=== PATIENT | female | born 1955 | race Caucasian/White ===

== ENCOUNTER → 2022-01-07 | Outpatient (CLI) | payer BC, SELFPAY ==
[2022-01-07 17:17] LABS: Absolute Lymphocyte Count 2.39 X10^3/uL (0.83-4.51); Absolute Neutrophil Count 4.2 X10^3/uL (2.0-7.7); Basophil# 0.07 X10^3/uL; Basophil% 0.9 % (0-1); Eosinophil# 0.31 X10^3/uL; Eosinophils% 4.1 % (0-5); Hematocrit 40.6 % (37-47); Hemoglobin 13.2 g/dL (12.0-15.0); Lymphocyte # 2.39 X10^3/ul (0.83-4.51); Lymphocyte % 31.4 % (19-41); Mean Corp Hgb Conc 32.5 g/dL (32-36); Mean Corpuscular Hgb 27.8 pg (27.0-32.0); Mean Corpuscular Volume 85.7 fL (81-99); Mean Platelet Vol. 9.8 fl (6.2-12.0); Monocyte# 0.66 X10^3/uL; Monocyte% 8.7 % (0-10); NRBC Flagged by Analyzer 0 % (0-5); Neutrophil # 4.17 X10^3/uL (2.7-7.7); Neutrophil % 54.6 % (47-70); Platelet Count 312 K/mm3 (150-450); RBC Distribution Width CV 13.9 % (11.6-14.6); RBC Distribution Width SD 43.7 fl (35.1-43.9); Red Blood Count 4.74 M/mm3 (4.2-5.4); White Blood Count 7.6 K/mm3 (4.4-11.0)
[2022-01-07 17:38] LABS: Erythrocyte Sedimentation Rate 19 mm/hr (0-30)
[2022-01-07 17:43] LABS: AST(SGOT) 19 U/L (15-37); Alanine Aminotransfer ALT/SGPT 24 U/L (13-56); Albumin, Serum 3.8 g/dL (3.2-5.0); Alkaline Phosphatase 88 U/L (45-117); Anion Gap 4 (5-15); BUN 20 mg/dL (7-18); CRP 4.38 mg/L (0.0-3.0); Calcium,Total 9.4 mg/dL (8.5-10.1); Chloride 107 mmol/L (98-107); Creatinine, Serum 0.91 mg/dL (0.55-1.02); EST Glomerular Filtration Rate 66 mL/min (>60); Est Glom Filt Rate - Afr Amer 80 mL/min (>60); Globulin 3.7 g/dL (2.2-4.2); Glucose 89 mg/dL (74-106); Potassium 4.1 mmol/L (3.5-5.1); Protein, Total 7.5 g/dL (6.4-8.2); Sodium Level 139 mmol/L (136-145)
== END | disposition home or self-care (01) ==
LOC: LAB 16:54
PROVIDERS: PCP Internal Medicine; Referring Provider Internal Medicine; Visit Provider Internal Medicine
DX: M05.79 Rheumatoid arthritis with rheumatoid factor of multiple sites without organ or systems involvement (principal)
CPT/HCPCS: 36415; 80053; 85025; 85652; 86140

== ENCOUNTER 2022-01-29 09:55 | Day surgery (SDC) | payer BC, SELFPAY ==
[2022-01-29] VITALS (8 sets, daily range): BP systolic 94–130; BP diastolic 63–82; PULSE 63–84; RESP 16–18; TEMP 35.9–36.8; O2SAT 93–98; BMI 27.3
--- NOTE | 2022-01-29 08:02 | OP.PCM_ITS ---
Problems Associated Problem List Diagnoses (1) Stress incontinence: Report of Operation Date of Procedure: 01/29/22 Pre-Operative Diagnosis: Stress urinary incontinence Post-Operative Diagnosis: Same Surgery/Procedure Performed:: Insertion mid urethral sling, cystoscopy Surgeon: Ana Corado Type of Anesthesia: General Specimen's removed: None Description of Procedure: The patient is a 66-year-old female who presents for definitive surgical intervention for. Informed consent has been obtained. Patient was taken to the operating room and placed in supine position on the operating room table. She was appropriately padded and secured. Anesthesia monitored the head, neck, airway, IV access and vital signs throughout the case. Once anesthesia was appropriately administered, she was placed into dorsal lithotomy position and she was prepped and draped in usual sterile fashion. A 16 [place] Hoffman catheter was inserted in her bladder was drained and left to straight drain. The mid urethra was isolated and infiltrated submucosally with 1% lidocaine with epinephrine for hydrostatic dissection and hemostatic control. A midline vertical 2 cm incision was then made over the mid urethra. Sharp and blunt dissection was performed on either side of the urethra in order to avoid entrance into the urethra or the vaginal mucosa. The [place] mid urethral sling was then inserted into the transobturator complexes bilaterally using the provided trochars. The sling was placed against the urethra without tension in a flat position. The tensioning suture was then cut and the incision was closed using running interlocking 2-0 Vicryl. The Hoffman catheter was removed and the cystoscope was inserted through the urethra under direct visualization into the urinary bladder. There was no evidence of injury to the urinary bladder, no mucosal changes including mass. There was no injury to the urethra identified. The cystoscope was removed. At this time the patient was awakened and taken to the recovery room in good condition. There were no complications during this procedure. Complications None Admit VTE Documentation VTE Present on Admission: Yes VTE Mechan Device Prophylaxis: SCD's VTE Pharm Prophylaxis ordered?: No Reason prophylaxis not ordered:: Treatment Not Indicated
--- NOTE | 2022-01-29 08:06 | DCINST_ITS ---
Discharge Instructions Diet Discharge Diet: No restrictions Activity Discharge Activity: May Shower May resume sexual activity in: 4 weeks Lifting Restrictions: No lifting over 5 pounds Additional Activity Instructions:: No exercise, no strenuous activity, no sexual activity Dressing / Incision Call your doctor if your incision/area has: Continuous Slow Oozing, Sudden Increased Bleeding, Increased Pain/ Swelling, Increased Redness, Foul Smelling Discharge and Swelling at the incision site Call your doctor if you observe: Fever of 101 or Higher, Inability to urinate and Inability to have a bowel movement Follow Up Care Please Follow Up With: Ana Corado MD When: call office for appt Test Results: Test results from this visit will be discussed in further detail at your follow-up appointment, if applicable. Discharge Plan Admission Attending Provider: Ana Corado Primary Care Provider: Lluvia Merchant Discharge Orders/Prescriptions Prescriptions: New oxycodone-acetaminophen [Percocet] 5-325 mg tablet 1 tab PO Q8H PRN (Reason: pain) 5 Days Qty: 15 RF: 0 cephalexin [cephalexin] 500 MG capsule 500 mg PO Q12 3 Days Qty: 6 RF: 0 Continued meloxicam 15 mg tablet 15 mg PO DAILY RF: 0 pantoprazole 40 mg tablet,delayed release (DR/EC) 40 mg PO BID RF: 0 Other Ambulatory Orders: CBC-Complete Blood Cnt No Diff (Routine) Timeframe: 20220128 Facility: [facility] - Location: Laboratory Ordered By: Dr. Liang Maradiaga 12 Lead EKG (Routine) Timeframe: 20220128 Location: None Selected Ordered By: Dr. Liang Maradiaga Referrals / Follow Up: Lluvia Merchant MD [Primary Care Provider] - Disposition Disposition (needs filled in before D/C Order can be placed): Home, Self Care
[2022-01-29] MEDS: Lactated Ringers 1,000 ML 15 ML IV (10:33)
[2022-01-29] MEDS: Cefazolin 2 GM in 0.9% Normal Saline 100 ML IV (11:35)
[2022-01-29] MEDS: Lidocaine 1% /Epi 1:100 (20ml) 20 ML Vial (11:43)
== END 2022-01-29 15:06 | disposition home or self-care (01) ==
LOC: SDC 09:57 → AC 09:58
PROVIDERS: PCP Internal Medicine; Referring Provider Urology; Visit Provider Urology
PROC: 0TJB8ZZ Inspection of Bladder, Via Natural or Artificial Opening Endoscopic (ICD-10-PCS; CPT 57288; principal; 2022-01-29 11:25)
DX: N39.3 Stress incontinence (female) (male) (principal); M06.9 Rheumatoid arthritis, unspecified; N95.2 Postmenopausal atrophic vaginitis; Z87.442 Personal history of urinary calculi; K21.9 Gastro-esophageal reflux disease without esophagitis
CPT/HCPCS: 57288; 00860; 52000; J7120; J2405

== ENCOUNTER → 2022-12-09 | Outpatient (CLI) | payer MEDICARE, BC, SELFPAY ==
--- NOTE | 2022-12-09 10:45 | BI_ITS ---
MAMMOGRAPHY - BILATERAL SCREENING REASON FOR EXAM: Female, 67 years old. Routine annual screening examination. PERTINENT HISTORY: Non-contributory. TECHNIQUE: Digital bilateral breast rufina (3D mammographic acquisition) in the CC and MLO projections. 2-D mediolateral oblique (MLO) and craniocaudad (CC) views of both breasts were obtained. CAD: Full Field Digital Mammography with Computer Added Detection was performed. COMPARISON: Comparison is made with prior outside examination dated August 30, 2014. FINDINGS: Breast Composition: There are scattered areas of fibroglandular density. There are no dominant masses or suspicious calcifications. Stable 5.3 mm calcified nodule in the upper slightly lateral aspect of the right breast. No other significant abnormalities are identified. There has been no significant change since the prior study. BI/SCRN MAMM (CAD)W/RUFINA BILAT IMPRESSION: Stable bilateral screening mammogram. Yearly follow-up mammogram recommended. (A) ASSESSMENT CATEGORY: BIRADS Category 2: Benign. A letter regarding these results will be sent to the patient by the facility within 30 days. Approximately 10% of breast cancers are not detected by mammography. A normal mammogram should not delay biopsy of a clinically suspicious abnormality. [id number] Electronically Signed: Bo Orta MD at 8:58 EDT ,
[2022-12-17 20:33] LABS: HPV Reflexed? NOT INDICATED
== END | disposition home or self-care (01) ==
PROVIDERS: Nurse Practitioner Women's Health; PCP Internal Medicine; Referring Provider Obstetrics & Gynecology Gynecology; Visit Provider Obstetrics & Gynecology Gynecology
DX: Z12.31 Encounter for screening mammogram for malignant neoplasm of breast (principal); L24.9 Irritant contact dermatitis, unspecified cause; Z12.4 Encounter for screening for malignant neoplasm of cervix
CPT/HCPCS: 77063; 77067; 88175; G0145

== ENCOUNTER → 2022-12-18 | Outpatient (CLI) | payer MEDICARE, BC, SELFPAY ==
--- NOTE | 2022-12-18 11:20 | US_ITS ---
INDICATION: postmenopausal bleeding -- discharge for 4 days EXAMINATION: Ultrasound US Pelvis Non OB Limited With Transvaginal Imaging TECHNIQUE: Transabdominal and transvaginal (for optimal evaluation of the adnexa) pelvic ultrasound was performed. Grayscale, spectral waveform, and color flow Doppler evaluation of the adnexa. COMPARISON: None. FINDINGS: UTERUS: Anteverted. The uterus measures 7.2 x 4.4 x 2.7 cm and is slightly heterogeneous. There is no focal uterine mass. The endometrial stripe measures 4 mm in AP diameter which is within normal limits for postmenopausal patient. Few nabothian cysts. Trace endocervical free fluid. RIGHT OVARY: Measures 2.2 x 1.9 x 1.4 cm. Non-enlarged, normal echogenicity. There is normal arterial inflow and venous outflow present in the right ovary. LEFT OVARY: Not visualized. FREE FLUID: None. US/Pelvic (Non ) IMPRESSION: Trace endocervical free fluid. Slight heterogeneity of the uterus with no evidence of fibroids or adenomyosis. Normal endometrial thickness. Non-visualization of the left ovary, possibly atrophied. Normal right ovary. Electronically Signed: Claudio Cerrato MD at 22:33 EDT ,
--- NOTE | 2022-12-18 11:20 | US_ITS ---
INDICATION: postmenopausal bleeding -- discharge for 4 days EXAMINATION: Ultrasound US Pelvis Non OB Limited With Transvaginal Imaging TECHNIQUE: Transabdominal and transvaginal (for optimal evaluation of the adnexa) pelvic ultrasound was performed. Grayscale, spectral waveform, and color flow Doppler evaluation of the adnexa. COMPARISON: None. FINDINGS: UTERUS: Anteverted. The uterus measures 7.2 x 4.4 x 2.7 cm and is slightly heterogeneous. There is no focal uterine mass. The endometrial stripe measures 4 mm in AP diameter which is within normal limits for postmenopausal patient. Few nabothian cysts. Trace endocervical free fluid. RIGHT OVARY: Measures 2.2 x 1.9 x 1.4 cm. Non-enlarged, normal echogenicity. There is normal arterial inflow and venous outflow present in the right ovary. LEFT OVARY: Not visualized. FREE FLUID: None. US/Transvaginal Non- IMPRESSION: Trace endocervical free fluid. Slight heterogeneity of the uterus with no evidence of fibroids or adenomyosis. Normal endometrial thickness. Non-visualization of the left ovary, possibly atrophied. Normal right ovary. Electronically Signed: Claudio Cerrato MD at 22:33 EDT ,
== END | disposition home or self-care (01) ==
LOC: US 11:20
PROVIDERS: PCP Internal Medicine; Referring Provider Nurse Practitioner Women's Health; Visit Provider Nurse Practitioner Women's Health
DX: N95.0 Postmenopausal bleeding (principal)
CPT/HCPCS: 76830; 76856

== ENCOUNTER 2023-01-04 15:20 | Emergency (ER) | payer MEDICARE, BC, SELFPAY ==
[2023-01-04 15:21] VITALS: BP 166/114; PULSE 133; RESP 18; TEMP 37.7; O2SAT 92; BMI 26.9
--- NOTE | 2023-01-04 15:36 | EKG12_ITS ---
Test Reason : Palp Blood Pressure : / mmHG Vent. Rate : 130 BPM Atrial Rate : 130 BPM P-R Int : 144 ms QRS Dur : 092 ms QT Int : 304 ms P-R-T Axes : 068 003 061 degrees QTc Int : 447 ms Sinus tachycardia with frequent and consecutive Premature ventricular complexes Abnormal ECG Confirmed by KEYLA ENGLAND, TERRIE ([id number]), editor continuity and script MARILU SAMUEL ([id number]) on 01/05/2023 9:49:11 AM Referred By: TIMOTEO Confirmed By:TERRIE RAMIRES MD
[2023-01-04 15:41] VITALS: BP 153/89; PULSE 120; RESP 17; O2SAT 92
--- NOTE | 2023-01-04 15:41 | EDS_ITS ---
HPI History of Present Illness Chief Complaint: Palpitations Informant: patient Narrative Narrative: Patient presents with multiple concerns. Patient states that she got her rituximab infusion about 2 weeks ago. Ever since then she just has not felt right. She cannot define this. There were no specific symptoms. She just did not feel well. She has had this infusion many times over about 6 years so this was not a new medicine. She has never had these symptoms before. Patient did start with some coughing and URI congestion type symptoms on Wednesday. But this was not going on for the prior 2 weeks. She states she might have just the smallest amount of chest pain at times but she might also be imagining it. Last night she did hear a sound in her chest like a rattling. She has been coughing but not bringing anything up. No fevers or chills. No nausea vomiting. She also feels like her heart rate has been racing for the last few days. She has no history of heart disease or dysrhythmia. Her only medical problems are rheumatoid arthritis and GERD. Her mother did have heart attack in her mid 50s but she also was a heavy smoker. This patient has never smoked. No known risk factor for DVT or PE. On review of systems, I also find out that the patient has had some frequent urination going back a couple weeks. But not dysuria. The main reason the patient came in today is the coughing and congestion that started Wednesday. She was seen in urgent care Wednesday. Started on cough medicine and prednisone and is not better. No antibiotics. She also has a grandchild with similar symptoms. [facility] Medical History Barretts esophagus Bronchitis Cancer Gastric reflux Restless legs Rheumatoid arthritis Sinusitis Stress incontinence URI (upper respiratory infection) Wears glasses Home Medications meloxicam 15 mg tablet 15 mg PO DAILY 01/23/22 [History Last Taken Unknown] pantoprazole 40 mg tablet,delayed release 40 mg PO BID 01/23/22 [History Last Taken Unknown] rituximab 10 mg/mL concentrate,intravenous (Rituxan) mg .Route 12/09/22 [History Last Taken Unknown] cgtlgvvxdqilcjw-nlcnlwqprhiaojv-MO 1 mg-30 mg-20 mg/5 mL oral liquid 10 ml PO Q6H PRN sinus symptoms #473 mL 01/02/23 [Rx Last Taken Unknown] methylprednisolone 4 mg tablets in a dose pack (Medrol (Fermin)) See Rx Instructions PO PER PKG DIR #21 tabs 01/02/23 [Rx Last Taken Unknown] cephalexin 250 mg capsule 250 mg PO Q6 #40 CAPSULES 01/04/23 [Rx Last Taken Unknown] Allergy/AdvReac Type Severity Reaction Status Date / Time No Known Allergies Allergy Verified 01/04/23 15:21 Surgical History History of bunionectomy Hx of colonoscopy Hx of esophagogastroduodenoscopy Status post creation of urethral sling by suprapubic approach Social History household members: spouse housing: house number of children: 3 current occupational status: retired Smoking Status: Never smoker alcohol intake: current alcohol intake frequency: holidays/special occasions only substance use type: does not use seatbelt use: sometimes do you feel safe at home: Yes additional social history: - Jose- Retired ROS ROS ED ROS Narrative A complete review of systems was performed and is negative except as documented in the history of present illness. Some specific details below. Constitutional: No recent fevers or chills. He has had some mild sense of malaise. She just states that she does not feel right but it is hard to explain the detailed symptoms. EYE: No discharge, visual complaints, or pain. ENT: No difficulty swallowing. No swelling. No pain. No current reflux symptoms. CV: See history of present illness. Respiratory: See history of present illness. GI: No abdominal pain. No nausea vomiting diarrhea. No blood in stool. : She has had frequency but not dysuria or hematuria. Musculoskeletal: No recent trauma. No pains. No swelling. Skin: No rash. Nondiaphoretic. Neuro: No goal weakness or numbness. Endocrine: No polyuria or polydipsia. EXAM Physical Exam Narrative Exam Narrative: CONSTITUTIONAL: Patient is nontoxic in appearance. The patient looks comfortable. Work of breathing looks normal. He carries on normal conversation. HEENT: No notable trauma. Mucous membranes moist. No sinus tenderness. No indication of pain with swallowing. EYES: No conjunctival injection. No proptosis. NECK:No JVD. No stridor. CARDIOVASCULAR: Mildly tachycardic rate. Slightly irregular rhythm. No notable murmur. No JVD. Monitor shows frequent PVCs and occasional bigeminy or trige ebony. There is also an occasional couplet. RESPIRATORY: No respiratory distress. Breathing is unlabored. No wheezes. No rhonchi. No rales. No pain with a deep breath. No chest wall tenderness. GASTROINTESTINAL: Not distended. Bowel sounds are normal. No tenderness. No guarding. No rebound. No palpable mass. No bruit is heard. GENITOURINARY: No tenderness over the bladder. No CVA tenderness. MUSCULOSKELETAL: Atraumatic. No peripheral edema. No cord. No tenderness along the deep venous system. No asymmetry. No distended veins. Peripheral pulses are equal x4. NEUROLOGICAL: Patient is alert and appropriate. No focal deficit noted. SKIN: No noted rashes. No diaphoresis. PSYCHIATRIC: Patient is calm. Mood is appropriate. Const Vital Signs: 01/04/23 15:21 01/04/23 15:41 01/04/23 15:41 Temperature 99.9 F H Temperature Source Temporal Pulse Rate 133 H 120 H Respiratory Rate 18 17 Respiratory Effort Normal Non-Labored Respiratory Pattern Normal Blood Pressure 166/114 H 153/89 H Blood Pressure Mean 131 110 Pulse Ox 92 92 Oxygen Delivery Method Room Air Room Air MDM MDM MDM Narrative Medical decision making narrative: Patient CBC did show an elevated white count of 15.9 but was otherwise normal. Her D-dimer was negative. Troponin was negative at 5 Electrolytes showed no marked abnormalities. Beta natruretic peptide was negative. Urine was cloudy with a large amount of leukocyte esterase and increased white cells. This along with her not feeling well, dysuria, elevated white count does lead me to believe that this is a true UTI. I think she has probably had a UTI for a week or 2 which is made her feel bad. She then got the upper respiratory symptoms from her grandchild. We did give her fluids. Her heart rate came from 130s down to about 100?110. I am not seeing anything except a rare PVC now. I think some of this increased heart rate and PVCs are likely contributed by methylprednisolone but even more likely by the brompheniramine pseudoephedrine that she has been taking. I think these may be causing more damage than benefit and at this point we discussed just stopping them. I will get her started on antibiotics for UTI. She has intolerance to Cipro. We will try Keflex. Lab Data Attestation: I reviewed the patient's lab results. Labs: Laboratory Results - last 24 hr 01/04/23 01/04/23 01/04/23 15:35 15:35 15:35 WBC 15.9 H RBC 5.38 Hgb 15.0 Hct 45.9 MCV 85.3 MCH 27.9 MCHC 32.7 RDW Std Deviation 43.4 RDW Coeff of Braxton 14.1 Plt Count 332 MPV 9.6 Immature Gran % (Auto) 0.500 Neut % (Auto) 81.5 H Lymph % (Auto) 9.5 L [place] % (Auto) 8.0 Eos % (Auto) 0.1 Baso % (Auto) 0.4 Absolute Neuts (auto) 12.9 H Absolute Lymphs (auto) 1.51 Nucleated RBC % 0 D-Dimer Quant (PE/DVT) 0.45 Sodium 137 Potassium 3.7 Chloride 101 Carbon Dioxide 25.0 Anion Gap 11 BUN 15 Creatinine 0.87 Estim Creat Clear Calc 65.03 Est GFR (MDRD) Af Amer 84 Est GFR (MDRD) Non-Af 69 BUN/Creatinine Ratio 17.3 Glucose 102 Calcium 10.1 Magnesium Troponin I High Sens 5 B-Natriuretic Peptide Urine Color Urine Clarity Urine pH Ur Specific [place] Urine Protein Urine Glucose (UA) Urine Ketones Urine Occult Blood Urine Nitrite Urine Bilirubin Urine Urobilinogen Ur Leukocyte Esterase Urine RBC Urine WBC Ur Squamous Epith Cells Urine Bacteria Urine Mucus 01/04/23 01/04/23 01/04/23 15:35 15:35 16:57 WBC RBC Hgb Hct MCV MCH MCHC RDW Std Deviation RDW Coeff of Braxton Plt Count MPV Immature Gran % (Auto) Neut % (Auto) Lymph % (Auto) [place] % (Auto) Eos % (Auto) Baso % (Auto) Absolute Neuts (auto) Absolute Lymphs (auto) Nucleated RBC % D-Dimer Quant (PE/DVT) Sodium Potassium Chloride Carbon Dioxide Anion Gap BUN Creatinine Estim Creat Clear Calc Est GFR (MDRD) Af Amer Est GFR (MDRD) Non-Af BUN/Creatinine Ratio Glucose Calcium Magnesium 1.9 Troponin I High Sens B-Natriuretic Peptide 33.1 Urine Color Yellow Urine Clarity Sl. Cloudy Urine pH 7.0 Ur Specific [place] 1.010 Urine Protein Negative Urine Glucose (UA) Normal Urine Ketones 5 H Urine Occult Blood 10 H Urine Nitrite Negative Urine Bilirubin Negative Urine Urobilinogen Normal Ur Leukocyte Esterase 500 H Urine RBC 0-5 SEEN Urine WBC 10-25 SEEN Ur Squamous Epith Cells 0-5 SEEN Urine Bacteria RARE Urine Mucus 0 SEEN Radiography Diagnostic Testing: Clinical Impression(s) from Imaging Studies Chest X-Ray 01/04/23 16:05 IMPRESSION: No definite acute or significant abnormality seen. Electronically Signed: Monico Armstrong MD at 16:51 EDT , EKG Initial EKG: Comments: My independent interpretation the patient's EKG done for cough and possible chest pain and tachycardia shows primarily sinus rhythm with overall tachycardic rate at 130. Frequent PVCs and occasional couplet. No acute ST elevation or depression. WA interval QRS duration and QTc are all normal. Discharge Plan Triage Chief Complaint: Palpitations Other Complaint: Hypertension ED Provider: Jace Song Dx/Rx/DC Orders Clinical Impression: Acute UTI, Viral URI with cough, Tachycardia, Medication reaction Instructions: ED Cystitis Female Adult Prescriptions: New cephalexin [cephalexin] 250 mg capsule 250 mg PO Q6 Qty: 40 0RF No Action Rituxan 10 mg/mL concentrate .Route Rx Instructions: Q 6months gfftxktrxybioeb-pszkwlfte-YR 1-30-20 mg/5 mL liquid 10 ml PO Q6H PRN (Reason: sinus symptoms) Qty: 473 0RF Rx Instructions: 40 ml/ day max methylprednisolone [Medrol (Fermin)] 4 mg tablets,dose pack See Rx Instructions PO PER PKG DIR Qty: 21 0RF Rx Instructions: PO PER PKG DIR meloxicam 15 mg tablet 15 mg PO DAILY Label Comments: TAKE 1 TABLET BY MOUTH EVERY DAY NEEDED pantoprazole 40 mg tablet,delayed release (DR/EC) 40 mg PO BID Primary Care Provider: Lluvia Merchant Referrals: Lluvia Merchant MD [Primary Care Provider] - 3-5 Days if not improving Activity Restrictions/Additional Instructions: May follow-up with your primary physician if not better in 3 to 4 days. Disposition Disposition: Home, Self Care
[2023-01-04 15:48] LABS: Absolute Lymphocyte Count 1.51 X10^3/uL (0.83-4.51); Absolute Neutrophil Count 12.9 X10^3/uL (2.0-7.7); Basophil# 0.06 X10^3/uL; Basophil% 0.4 % (0-1); Eosinophil# 0.01 X10^3/uL; Eosinophils% 0.1 % (0-5); Hematocrit 45.9 % (37-47); Lymphocyte # 1.51 X10^3/ul (0.83-4.51); Lymphocyte % 9.5 % (19-41); Mean Corp Hgb Conc 32.7 g/dL (32-36); Mean Corpuscular Hgb 27.9 pg (27.0-32.0); Mean Corpuscular Volume 85.3 fL (81-99); Mean Platelet Vol. 9.6 fl (6.2-12.0); Monocyte# 1.27 X10^3/uL; NRBC Flagged by Analyzer 0 % (0-5); Neutrophil # 12.92 X10^3/uL (2.7-7.7); Neutrophil % 81.5 % (47-70); Platelet Count 332 K/mm3 (150-450); RBC Distribution Width CV 14.1 % (11.6-14.6); RBC Distribution Width SD 43.4 fl (35.1-43.9); Red Blood Count 5.38 M/mm3 (4.2-5.4); White Blood Count 15.9 K/mm3 (4.4-11.0)
--- NOTE | 2023-01-04 15:50 | ED.RN ---
NO OLD EKGS LISTED.
[2023-01-04 15:59] LABS: D-Dimer Quantitative (DVT/PE) 0.45 FEU/ug/m (0.27-0.49)
--- NOTE | 2023-01-04 16:05 | RAD_ITS ---
STUDY: X-RAY CHEST REASON FOR EXAM: Female, 67 years old. Cough TECHNIQUE: Frontal and lateral views of the chest. COMPARISON: None. FINDINGS: The lungs are clear and expanded. Probable mild scarring in both lung bases. There is no demonstrated pleural abnormality. Normal size heart. Normal mediastinum and zoya. Normal visualized pulmonary arteries. Normal visualized aortic arch and descending thoracic aorta. Moderate hiatal hernia. There are diffuse degenerative changes of the visualized thoracic spine. Normal visualized ribs, clavicles, and shoulders. There is no demonstrated abnormality of the visualized soft tissue structures of the upper abdomen. RAD/Chest PA and Lateral IMPRESSION: No definite acute or significant abnormality seen. Electronically Signed: Monico Armstrong MD at 16:51 EDT ,
[2023-01-04 16:08] LABS: Anion Gap 11 (5-15); BUN 15 mg/dL (7-18); BUN/Creat Ratio 17.3 RATIO (10-20); Calcium,Total 10.1 mg/dL (8.5-10.1); Chloride 101 mmol/L (98-107); Creatinine, Serum 0.87 mg/dL (0.55-1.02); EST Glomerular Filtration Rate 69 mL/min (>60); Est Glom Filt Rate - Afr Amer 84 mL/min (>60); Estimated Creatinine Clearance 65.03 ml/min; Glucose 102 mg/dL (74-106); Potassium 3.7 mmol/L (3.5-5.1); Sodium Level 137 mmol/L (136-145); Troponin-I HS 5 pg/mL (3.0-54.0)
[2023-01-04 16:09] LABS: Magnesium 1.9 mg/dL (1.6-2.6)
[2023-01-04] MEDS: 0.9% Normal Saline 1,000 ML 999 ML IV (16:13)
[2023-01-04 17:02] LABS: Mucous, Urine 0 SEEN /hpf (<or=2+)
[2023-01-04 17:09] LABS: Color, Urine Yellow (Yellow); Glucose, Dipstick Normal (Normal); Ketone-Dipstick 5 mg/dl (Negative); Leukocyte Esterase-Dipstick 500 /ul (Negative); Nitrite-Dipstick Negative (Negative); Occult Blood-Urine 10 /ul (Negative); Protein-Dipstick Negative (Negative); Urine Bilirubin Dipstick Negative (Negative); Urine Clarity Sl. Cloudy (Clear); Urine Urobilinogen Normal (Normal)
[2023-01-04 17:24] LABS: BNP,B-Type NATRIURETIC PEPTIDE 33.1 pg/mL (0-100)
[2023-01-04 17:27] LABS: Bacteria RARE /hpf (None Seen); Red Blood Cells-Urine 0-5 SEEN /hpf (0-5); Squamous Epithelial Cells - UA 0-5 SEEN /hpf (5-10); White Blood Cells 10-25 SEEN /hpf (0-5)
[2023-01-04 17:48] VITALS: BP 147/92; PULSE 118; RESP 18; O2SAT 91
== END 2023-01-04 18:02 | disposition home or self-care (01) ==
PROVIDERS: Emergency Provider Emergency Medicine; PCP Internal Medicine; Visit Provider Emergency Medicine
DX: N39.0 Urinary tract infection, site not specified (principal); M06.9 Rheumatoid arthritis, unspecified; I10 Essential (primary) hypertension; R00.0 Tachycardia, unspecified; T50.905A Adverse effect of unspecified drugs, medicaments and biological substances, initial encounter; R00.2 Palpitations; J06.9 Acute upper respiratory infection, unspecified; R05.9 Cough, unspecified; K21.9 Gastro-esophageal reflux disease without esophagitis
CPT/HCPCS: 71046; 80048; 81001; 83735; 83880; 84484; 85025; 85379; 87428; 93005; 99284; J7030; A4216

== ENCOUNTER → 2023-01-19 | Outpatient (CLI) | payer MEDICARE, BC, SELFPAY | END | disposition home or self-care (01) | LOC: PSN 11:22 | PROVIDERS: PCP Internal Medicine; Referring Provider Internal Medicine; Visit Provider Internal Medicine | DX: R00.2 Palpitations (principal) | CPT/HCPCS: 93225; 93226 ==

== ENCOUNTER → 2023-03-31 | Outpatient (CLI) | payer MEDICARE, BC, SELFPAY ==
--- NOTE | 2023-03-31 07:53 | US_ITS ---
STUDY: ULTRASOUND OF THE FEMALE PELVIS - COMPLETE REASON FOR EXAM: Female, 68 years old. PMB LMP: Patient is postmenopausal. TECHNIQUE: Transabdominal and Transvaginal TECHNICAL QUALITY: Adequate. COMPARISON: Comparison is made with prior study dated December 10, 2022. FINDINGS: The uterus is anteverted and is in a midline position. The uterus measures 5.8 cm x 4.4 cm x 2.7 cm. There is a Nabothian cyst of the cervix. The endometrium measures 1.3 mm in thickness, and is hyperechoic. There is no demonstrated endometrial mass. There is no demonstrated myometrial mass. Scattered calcifications are seen within the myometrium. I.U.D. - The patient does not have an I.U.D. The right ovary is visualized. The right ovary measures 1.2 cm x 1.2 cm x 0.8 cm. There is no right ovarian cyst or ovarian mass. There is no visualized right adnexal mass or complex lesion. There is normal arterial and normal venous vascularity. The left ovary is visualized. The left ovary measures 1.6 cm x 1.3 cm x 0.9 cm. There is no left ovarian cyst or ovarian mass. There is no visualized left adnexal mass or complex lesion. There is normal arterial and normal venous vascularity. There is no fluid in the cul-de-sac. The pre void volume of the bladder was 278 ml. US/Pelvic w/ Transvaginal IMPRESSION: Mild heterogeneous appearance of the myometrium with scattered calcifications. Electronically Signed: Bo Orta MD at 15:00 EDT ,
== END | disposition home or self-care (01) ==
LOC: OPUS 07:52
PROVIDERS: PCP Internal Medicine; Referring Provider Nurse Practitioner Women's Health; Visit Provider Nurse Practitioner Women's Health
DX: N95.0 Postmenopausal bleeding (principal); Z78.0 Asymptomatic menopausal state
CPT/HCPCS: 76830; 76856

== ENCOUNTER → 2023-07-10 | Outpatient (CLI) | payer MEDICARE, BC, SELFPAY | END | disposition home or self-care (01) | LOC: LABSPEC 07:34 | PROVIDERS: PCP Internal Medicine; Visit Provider Internal Medicine | DX: J98.4 Other disorders of lung (principal) | CPT/HCPCS: 87070; 87077; 87101; 87205 ==

== ENCOUNTER → 2023-11-17 | Outpatient (CLI) | payer MEDICARE, BC, SELFPAY | END | disposition home or self-care (01) | LOC: LABSPEC 11:15 | PROVIDERS: PCP Internal Medicine; Referring Provider Physician Assistant Surgical; Visit Provider Physician Assistant Surgical | DX: N39.0 Urinary tract infection, site not specified (principal) | CPT/HCPCS: 87086; 87088; 87186 ==

== ENCOUNTER 2023-11-23 13:32 | Emergency (ER) | payer MEDICARE, BC, SELFPAY ==
[2023-11-23 13:32] VITALS: BP 178/101; PULSE 111; RESP 14; TEMP 36.5; O2SAT 97; BMI 26.2
[2023-11-23 13:34] VITALS: BP 169/99; PULSE 81; RESP 18; TEMP 36.5; O2SAT 97
[2023-11-23 14:03] VITALS: O2SAT 94
--- NOTE | 2023-11-23 14:38 | EX.ED.DYSGE1 ---
HPI History of Present Illness Chief Complaint: Shortness of Breath Informant: patient Onset/Context/Timing Onset: Month(s) Context: Gradual Onset Timing: Continuous Quality: Wheezing Location: Chest Worsened by: Nothing Relieved by: Nothing Narrative Narrative: Patient presents with cough that has been chronic for the past several months. Patient states that over the last few weeks, she has started coughing up some yellow and white sputum. Patient denies any fevers or chills. Patient states she is on Macrobid for urinary tract infection. Patient is concerned that she has pneumonia. Patient states she is scheduled for a lung biopsy. Patient states she feels like she is wheezing. Patient denies any chest pain. Patient states she is on 2 inhalers without any improvement. [facility] Medical History Barretts esophagus Bilateral carpal tunnel syndrome Bronchitis Cancer Gastric reflux Restless legs Rheumatoid arthritis Sinusitis Stress incontinence URI (upper respiratory infection) Wears glasses Home Medications meloxicam 15 mg tablet 15 mg PO DAILY 01/23/22 [History Last Taken Unknown] pantoprazole 40 mg tablet,delayed release 40 mg PO BID 01/23/22 [History Last Taken Unknown] rituximab 10 mg/mL concentrate,intravenous (Rituxan) mg .Route 12/09/22 [History Last Taken Unknown] acyclovir 400 mg tablet 400 mg PO TID 5 days #15 tabs 10/18/23 [Rx Last Taken Unknown] clobetasol 0.05 % topical ointment 1 applic topical DAILY PRN 10/18/23 [History Last Taken Unknown] dextromethorphan-guaifenesin 30 mg-200 mg/5 mL oral liquid 5 ml PO Q8H PRN cough #474 mL 11/23/23 [Rx Last Taken Unknown] levofloxacin 750 mg tablet 750 mg PO DAILY #7 tabs 11/23/23 [Rx Last Taken Unknown] Allergy/AdvReac Type Severity Reaction Status Date / Time No Known Allergies Allergy Verified 11/23/23 13:32 Surgical History History of bunionectomy Hx of colonoscopy Hx of esophagogastroduodenoscopy Status post creation of urethral sling by suprapubic approach Social History household members: spouse housing: house number of children: 3 current occupational status: retired Smoking Status: Never smoker alcohol intake: current alcohol intake frequency: holidays/special occasions only substance use type: does not use seatbelt use: sometimes do you feel safe at home: Yes additional social history: - Jose- Retired ROS ROS ED Constitutional Constitutional ED: Denies chills or fever(s) Eyes Eyes: Denies blurry vision or change in vision ENT ENT ED: Denies rhinorrhea or sore throat Cardiovascular Cardiovascular: Denies chest pain or palpitations Respiratory/Chest Respiratory/Chest: Reports cough and sputum; Denies dyspnea Gastrointestinal Gastrointestinal: Denies nausea or vomiting Genitourinary Genitourinary ED: Denies dysuria or hematuria Musculoskeletal Musculoskeletal: Denies back pain or neck pain Integumentary Denies abscess or rash Neurologic Neurologic: Denies headache(s) or weakness Allergic/Immunologic Allergic/Immunologic ED: Denies mouth swelling or urticaria EXAM Physical Exam Const Vital Signs: 11/23/23 13:32 11/23/23 13:34 11/23/23 14:03 Temperature 97.7 F L 97.7 F L Temperature Source Temporal Temporal Pulse Rate 111 H 81 Respiratory Rate 14 18 Respiratory Effort Short of Breath Respiratory Depth Normal Respiratory Pattern Normal Blood Pressure 178/101 H 169/99 H Blood Pressure Mean 126 122 Pulse Ox 97 97 Oxygen Delivery Method Room Air Room Air Room Air Positive well nourished and well developed General Appearance ED: well developed and NAD HEENT Reports moist mucous membranes Neck supple and no JVD Resp normal respiratory effort and clear to auscultation bilaterally Cardio regular rate and regular rhythm GI non-tender and non-distended Palpation: soft Neuro oriented x3, CN's II-XII intact bilaterally and no sensory deficits noted Sensorium / Orientation: alert Motor Exam: strength 5/5 throughout Psych mental status grossly normal MDM MDM MDM Narrative Medical decision making narrative: Differential diagnosis includes pneumonia, viral illness, and chronic cough. Chest x-ray will be obtained to assess for pneumonia. Radiography Chest X-Ray - ED: 2 View, Read by ED Physician, Read by Radiologist and Left Infiltrate Diagnostic Testing: Clinical Impression(s) from Imaging Studies Chest X-Ray 11/23/23 14:54 IMPRESSION: Focal left lower lobe infiltrate superimposed on left basilar scarring. Electronically Signed: Bo Orta MD at 15:05 EDT , PA and lateral chest x-ray was obtained. There are 2 views. On my independent interpretation, lung weems show a left lower lobe infiltrate and left basilar scarring. There is normal cardiac silhouette. Bony thorax is normal. Radiologist also interpreted the x-ray and agrees. Treatment and Re-Evaluation :: Patient was given a dose of Tessalon Perles here. Patient was advised of her findings. Patient was instructed to stop her nitrofurantoin. Patient was given a prescription for Levaquin. Patient was also given a prescription for cough syrup. Patient was instructed to follow-up with her primary care physician in 5 to 7 days. Patient understood and was agreeable with the plan. All questions were answered. Discharge Plan Triage Chief Complaint: Shortness of Breath ED Provider: Loy Orourke Dx/Rx/DC Orders Clinical Impression: Chronic cough, Pneumonia Instructions: ED Pneumonia (Adult) Prescriptions: New levofloxacin 750 mg tablet 750 mg PO DAILY Qty: 7 0RF dextromethorphan-guaifenesin 30-200 mg/5 mL liquid 5 ml PO Q8H PRN (Reason: cough) Qty: 474 0RF Discontinued nitrofurantoin monohyd/m-cryst 100 mg capsule 1 cap PO Q12H 7 Days Qty: 14 0RF Rx Instructions: administer with a meal/food; swallow whole; do not open, crush, dissolve , or chew No Action Rituxan 10 mg/mL concentrate .Route Rx Instructions: Q 6months clobetasol 0.05 % ointment 1 applic topical DAILY PRN acyclovir 400 mg tablet 400 mg PO TID 5 Days Qty: 15 5RF meloxicam 15 mg tablet 15 mg PO DAILY Patient Comments: TAKE 1 TABLET BY MOUTH EVERY DAY NEEDED pantoprazole 40 mg tablet,delayed release (DR/EC) 40 mg PO BID Primary Care Provider: Lluvia Merchant Referrals: Lluvia Merchant MD [Primary Care Provider] - 3-5 Days Disposition Disposition: Home, Self Care
--- NOTE | 2023-11-23 14:54 | RAD_ITS ---
STUDY: X-RAY CHEST REASON FOR EXAM: Female, 68 years old. Cough TECHNIQUE: PA and lateral views of the chest. COMPARISON: Comparison is made with prior study dated January 04, 2023. FINDINGS: Hyperinflation. Focal infiltrate superimposed on left basilar scarring. There is no demonstrated pleural abnormality. Normal size heart. Normal mediastinum and zoya. Normal visualized pulmonary arteries. Normal visualized aortic arch and descending thoracic aorta. There are degenerative changes of the visualized thoracic spine. Increased kyphosis. Normal visualized ribs, clavicles, and shoulders. Hiatal hernia. RAD/Chest PA and Lateral IMPRESSION: Focal left lower lobe infiltrate superimposed on left basilar scarring. Electronically Signed: Bo Orta MD at 15:05 EDT ,
[2023-11-23 15:32] VITALS: BP 154/78; PULSE 90; RESP 18; O2SAT 96
[2023-11-23] MEDS: levoFLOXacin 750 MG Tablet PO (15:46)
[2023-11-23 15:51] VITALS: BP 146/71; PULSE 89; RESP 16; TEMP 36.6; O2SAT 97
== END 2023-11-23 15:51 | disposition home or self-care (01) ==
PROVIDERS: Emergency Provider Emergency Medicine; PCP Internal Medicine; Visit Provider Emergency Medicine
DX: J18.9 Pneumonia, unspecified organism (principal); R05.3 Chronic cough; K21.9 Gastro-esophageal reflux disease without esophagitis; Z79.899 Other long term (current) drug therapy
CPT/HCPCS: 71046; 99282

== ENCOUNTER → 2024-06-27 | Outpatient (CLI) | payer MEDICARE, BC, SELFPAY ==
--- NOTE | 2024-06-27 13:19 | BI_ITS ---
MAMMOGRAPHY - BILATERAL SCREENING REASON FOR EXAM: Female, 69 years old. Routine annual screening examination. PERTINENT HISTORY: Non-contributory. TECHNIQUE: Digital bilateral breast rufina (3D mammographic acquisition) in the CC and MLO projections. 2-D mediolateral oblique (MLO) and craniocaudad (CC) views of both breasts were obtained. CAD: Full Field Digital Mammography with Computer Added Detection was performed. COMPARISON: Comparison is made with prior study dated December 09, 2022. FINDINGS: Breast Composition: There are scattered areas of fibroglandular density. There are no dominant masses or suspicious calcifications. Stable 5.3 mm calcified nodule in the upper slightly lateral aspect of the right breast. No other significant abnormalities are identified. There has been no significant change since the prior study. BI/SCRN MAMM (CAD)W/RUFINA BILAT IMPRESSION: Stable bilateral screening mammogram. Yearly follow-up mammogram recommended. (A) ASSESSMENT CATEGORY: BIRADS Category 2: Benign. A letter regarding these results will be sent to the patient by the facility within 30 days. Approximately 10% of breast cancers are not detected by mammography. A normal mammogram should not delay biopsy of a clinically suspicious abnormality. [id number] Electronically Signed: Bo Orta MD at 14:09 EST ,
--- NOTE | 2024-06-27 13:27 | BD_ITS ---
STUDY: DUAL ENERGY X-RAY ABSORPTIOMETRY / DXA REASON FOR EXAM: Female, 69 years old. M810 TECHNIQUE: Bone Mineral Density (BMD) measurements of lumbar spine and bilateral hips were obtained. COMPARISON: None. FINDINGS: Lumbar Spine (L1-L4): g/cm2 (0.730) / T-score (-2.6) / Z-score (-0.7) Findings are suggestive of osteoporosis with a high fracture risk. Left Femur Total: g/cm2 (0.846) / T-score (-0.8) / Z-score (0.6) Left Femoral Neck: g/cm2 (0.709) / T-score (-1.3) / Z-score (0.4) Right Femur Total: g/cm2 (0.875) / T-score (-0.6) / Z-score (0.8) Right Femoral Neck: g/cm2 (0.759) / T-score (-0.8) / Z-score (0.8) BD/Dexa Bone Density Study IMPRESSION: The patient is considered osteoporotic as outlined below according to World [employer] Organization (WHO) criteria with a high fracture risk. Reference Information: The T-score is the number of standard deviations above or below the standard which is normal for young adults at their peak bone mineral density. The World Health Organization (WHO) interprets the T-scores as follows: Above -1 Normal bone density Between -1 and -2.5 Osteopenia Equal to / or below -2.5 Osteoporosis As a practical clinical guideline, osteopenia may be graded as follows: Mild -1 through -1.5 Moderate -1.6 through -2.0 Severe -2.1 through -2.4 The Z-score is the number of standard deviations above or below age-matched controls. A Z-score of less than -1.5 would be considered abnormal. References: 1. NIH Osteoporosis and Related Bone Diseases www osteo.org 2. International Society for Clinical Densitometry www iscd.org 3. National Osteoporosis Foundation www nof.org Electronically Signed: Bo Orta MD at 14:37 EST ,
== END | disposition home or self-care (01) ==
LOC: OPBD 13:17
PROVIDERS: PCP Internal Medicine; Referring Provider Internal Medicine; Visit Provider Internal Medicine
DX: Z12.31 Encounter for screening mammogram for malignant neoplasm of breast (principal); M81.0 Age-related osteoporosis without current pathological fracture
CPT/HCPCS: 77063; 77067; 77080

== ENCOUNTER 2024-09-01 10:07 | Day surgery (SDC) | payer MEDICARE, BC, SELFPAY ==
--- NOTE | 2024-08-31 10:37 | PAT.ANE_ITS ---
Pre-Assessment Diagnosis/Proposed Procedure Planned Operative Procedure(s): RIGHT FOOT BUNIONECTOMY AND SECOND TOE CORRECTION RIGHT ROOT BONE GRAFT HARVEST AND APPLICATION Anesthesia History Anesthesia History - v belt builder: Anesthesia History - v belt builder Hx Hospitalization No 08/28/24 11:14 Any Problems With Anesthesia No 08/28/24 11:14 Cholinesterase deficiency No 08/28/24 11:14 You/Your Family Experience No 08/28/24 11:14 fever (hyperthermia) with Relationship Recent Exposure to Contagious No 01/29/22 10:29 Disease Does patient have nerve No 08/28/24 11:14 stimulator Patient instructed to have device shut off --Does patient have Pacemaker or ICD? When Was Last Pacemaker Check QUESTION #4 FULL TEXT: You/Your Family Experience fever (hyperthermia) with Anesthesia Last Oral Intake Last Oral intake: Last Oral Intake NPO since Meds taken in AM with sips of water? Meds patient instructed to take am of surgery PONV PONV - v belt builder: PONV - v belt builder Female Yes 08/28/24 11:14 HX of Motion Sickness No 08/28/24 11:14 HX of N/V After Surgery No 08/28/24 11:14 Non-Smoker Yes 08/28/24 11:14 Duration of Surgery greater Yes 08/28/24 11:14 than 60 minutes Number of Risk Factors 3 08/28/24 11:14 PONV Score Moderate Risk 08/28/24 11:14 Height & Weight Height & Weight: Anesthesia: Height & Weight Height 5 ft 8 in 11/23/23 13:32 Respiratory Assessment Respiratory Assessment - v belt builder: Respiratory Tract Infection Hx - v belt builder Hx Respiratory Tract Infection No 08/28/24 11:14 STOP Sleep Apnea STOP Sleep Apnea - v belt builder: STOP Sleep Apnea - v belt builder Hx Hypertension No 08/28/24 11:14 Hx Sleep Apnea No 08/28/24 11:14 CPAP BIPAP Do you snore loudly (louder Yes 08/28/24 11:14 than talking or can be heard Do you often feel tired/ No 08/28/24 11:14 fatigued/ sleepy during daytime? Has anyone observed you stop No 08/28/24 11:14 breathing during sleep? STOP Results Negative 08/28/24 11:14 QUESTION #5 FULL TEXT : Do you snore loudly (louder than talking or can be heard through closed doors)? 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 Specify any problems Hx of Preganancy in last 3 No 08/28/24 11:14 Months Nurse Filling Out Transfusion DSCHRIBER 08/28/24 11:14 & Questions: Date: 08/28/24 08/28/24 11:14 Time: 11:16 08/28/24 11:14 Patient unable to answer at this time (ie. confused, unrespo /Reproduction History /Reproductive History - v belt builder: /Reproductive Hx- v belt builder Hx Now No 08/28/24 11:14 Gestational Age (in weeks): EDC: Hx Hx Para Hx Section SAB No 08/28/24 11:14 Active Medications Active Medications: Current Medications Generic Name Dose Route Start Last Admin Trade Name Freq PRN Reason Stop Dose Admin Cefazolin Sodium 2 gm/ N/A 20 mls @ 400 mls/hr 09/01/24 11:45 IV 09/01/24 11:47 PREOP ONE [facility] Medical History (Updated 08/28/24 @ 11:24 by Joselyn Abbasi) Loss of hearing History of Mohs micrographic surgery for skin cancer Depression Anxiety Alcohol use High cholesterol History of hiatal hernia Non-smoker Shortness of breath on exertion History of pain when walking History of edema History of Holter monitoring Cardiology follow-up encounter Bilateral carpal tunnel syndrome Bronchitis Sinusitis URI (upper respiratory infection) Stress incontinence Wears glasses Cancer Restless legs Barretts esophagus Gastric reflux Rheumatoid arthritis Home Medications ?Medication ?Instructions ?Recorded ?Last Taken ?Type meloxicam 15 mg tablet 15 mg PO DAILY 01/23/22 Unknown History pantoprazole 40 mg tablet,delayed 40 mg PO BID 01/23/22 Unknown History release rituximab 10 mg/mL 100 mg IV .Q6MO 12/09/22 Unknown History concentrate,intravenous (Rituxan) clobetasol 0.05 % topical ointment 1 applic topical DAILY PRN skin 10/18/23 Unknown History irritation ascorbic acid (vitamin C) 500 mg 1 g PO DAILY 08/28/24 Unknown History tablet (C-500) atorvastatin 20 mg tablet 20 mg PO QHS 08/28/24 Unknown History azithromycin 250 mg tablet 250 mg PO MOWEFR 08/28/24 Unknown History cholecalciferol (vitamin D3) 25 25 mcg PO DAILY 08/28/24 Unknown History mcg (1,000 unit) capsule (Vitamin D3) Allergy/AdvReac Type Severity Reaction Status Date / Time No Known Allergies Allergy Verified 08/28/24 11:10 Surgical History (Updated 08/28/24 @ 11:24 by Joselyn Abbasi) Hx of biopsy History of cystoscopy Hx of esophagogastroduodenoscopy Hx of colonoscopy History of bunionectomy Social History household members: spouse housing: house number of children: 3 current occupational status: retired Smoking Status: Never smoker alcohol intake: current alcohol intake frequency: holidays/special occasions only substance use type: does not use seatbelt use: sometimes do you feel safe at home: Yes additional social history: - Jose- Retired Audit: Pertinent Findings Pertinent Findings EKG Perinent findings: 01/04/2023 sinus tachycardia of 130 bpm with frequent and consecutive PVCs Pulmonary function results/spirometer pertinent findings: Chest x-ray 11/23/2023 hiatal hernia focal infiltrate filtrate superimposed on left basilar scarring Recommendation Anesthesia Recommendation Anesthesia recommendation: OPTIMIZED for anesthesia
[2024-09-01] VITALS (9 sets, daily range): BP systolic 106–148; BP diastolic 62–100; PULSE 74–98; RESP 16–18; TEMP 36.1–36.7; O2SAT 94–99; BMI 27.8
[2024-09-01] MEDS: 0.9% Normal Saline (1000mL) 1,000 ML 15 ML IV (10:59)
--- NOTE | 2024-09-01 11:12 | PCM.PRE.AN2 ---
ASA Classification* ASA Classification ASA Classification: 2 Assessment & Plan Anesthesia* Anesthesia Assessment Anesthesia Assessment: Discussed sedation and/or anesthesia options, risks, benefits, and alternatives with patient/parents/legal guardian/POA. Questions invited. The patient/parents/legal guardian/POA seems to understand and agrees to proceed with anesthesia plan. Reviewed the physical assessment, medical history, allergy history and patient home medications list prior to surgery/procedure/anesthetic and documented any changes. Performed airway and anesthesia risk assessments. Anesthesia Type Anesthesia Type: General and Block (Patient is consented for popliteal block.) History Source History Obtained from:: Patient and Chart Anesthesia Focused Assessment* Temperature: 97.5 F Pulse Rate: 74 Blood Pressure: 135/74 Respiratory Rate: 18 Pulse Ox: 99 Oxygen Delivery Method: Room Air Airway Assessment Mouth opens: >3 cm Mallampati Score: II Teeth Condition: Caps/Crowns (Patient has a crown. It is tight.) Neck Range of motion (ROM): Limited ROM (Slight decrease in extension) Focused Labs Anesthesia Preop lab: CBC WBC 15.9 K/mm3 (4.4-11.0) H 01/04/23 15:35 RBC 5.38 M/mm3 (4.2-5.4) 01/04/23 15:35 Hgb 15.0 g/dL (12.0-15.0) 01/04/23 15:35 Hct 45.9 % (37-47) 01/04/23 15:35 Plt Count 332 K/mm3 (150-450) 01/04/23 15:35 CHEMISTRY Potassium 3.7 mmol/L (3.5-5.1) 01/04/23 15:35 Sodium 137 mmol/L (136-145) 01/04/23 15:35 Magnesium 1.9 mg/dL (1.6-2.6) 01/04/23 15:35 BUN 15 mg/dL (7-18) 01/04/23 15:35 Creatinine 0.87 mg/dL (0.55-1.02) 01/04/23 15:35 Glucose 102 mg/dL (74-106) 01/04/23 15:35 COAG Pre-Assessment Diagnosis/Proposed Procedure Planned Operative Procedure(s): RIGHT FOOT BUNIONECTOMY AND SECOND TOE CORRECTION RIGHT ROOT BONE GRAFT HARVEST AND APPLICATION Anesthesia History Anesthesia History - certified drug counselor: Anesthesia History - certified drug counselor Hx Hospitalization No 08/28/24 11:14 Any Problems With Anesthesia No 08/28/24 11:14 Cholinesterase deficiency No 08/28/24 11:14 You/Your Family Experience No 08/28/24 11:14 fever (hyperthermia) with Relationship Recent Exposure to Contagious No 09/01/24 10:46 Disease Does patient have nerve No 08/28/24 11:14 stimulator Patient instructed to have device shut off --Does patient have Pacemaker No 09/01/24 10:46 or ICD? When Was Last Pacemaker Check QUESTION #4 FULL TEXT: You/Your Family Experience fever (hyperthermia) with Anesthesia Last Oral Intake Last Oral intake: Last Oral Intake NPO since 21:00 09/01/24 10:46 Meds taken in AM with sips of water? Meds patient instructed to take am of surgery Any additional information?: Yes NPO since: 08:30 (Patient took her medications at 8:30 AM.) Meds taken in AM with sips of water?: Yes PONV PONV - certified drug counselor: PONV - certified drug counselor Female Yes 08/28/24 11:14 HX of Motion Sickness No 08/28/24 11:14 HX of N/V After Surgery No 08/28/24 11:14 Non-Smoker Yes 08/28/24 11:14 Duration of Surgery greater Yes 08/28/24 11:14 than 60 minutes Number of Risk Factors 3 08/28/24 11:14 PONV Score Moderate Risk 08/28/24 11:14 Height & Weight Height & Weight: Anesthesia: Height & Weight Height 5 ft 8 in 09/01/24 10:46 Weight: 83 kg 09/01/24 10:46 Body Mass Index (BMI) 27.8 09/01/24 10:46 Respiratory Assessment Respiratory Assessment - certified drug counselor: Respiratory Tract Infection Hx - certified drug counselor Hx Respiratory Tract Infection No 08/28/24 11:14 Any additional information?: Yes Hx Respiratory Tract Infection: Yes (Patient is a cold last week. She has a lingering cough this week.) STOP Sleep Apnea STOP Sleep Apnea - certified drug counselor: STOP Sleep Apnea - certified drug counselor Hx Hypertension No 08/28/24 11:14 Hx Sleep Apnea No 08/28/24 11:14 CPAP BIPAP Do you snore loudly (louder Yes 08/28/24 11:14 than talking or can be heard Do you often feel tired/ No 08/28/24 11:14 fatigued/ sleepy during daytime? Has anyone observed you stop No 08/28/24 11:14 breathing during sleep? STOP Results Negative 08/28/24 11:14 QUESTION #5 FULL TEXT : Do you snore loudly (louder than talking or can be heard through closed doors)? 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 Specify any problems Hx of Preganancy in last 3 No 08/28/24 11:14 Months Nurse Filling Out Transfusion DSCHRIBER 08/28/24 11:14 & Questions: Date: 08/28/24 08/28/24 11:14 Time: 11:16 08/28/24 11:14 Patient unable to answer at this time (ie. confused, unrespo /Reproduction History /Reproductive History - certified drug counselor: /Reproductive Hx- certified drug counselor Hx Now No 08/28/24 11:14 Gestational Age (in weeks): EDC: Hx Hx Para Hx Section SAB No 08/28/24 11:14 Active Medications Active Medications: Current Medications Generic Name Dose Route Start Last Admin Trade Name Freq PRN Reason Stop Dose Admin Cefazolin Sodium 2 gm/ N/A 20 mls @ 400 mls/hr 09/01/24 11:45 IV 09/01/24 11:47 PREOP ONE Sodium Chloride 1,000 mls @ 15 mls/hr 09/01/24 10:20 09/01/24 10:59 IV 09/06/24 23:39 15 mls/hr .Q48H JUANY Administration Protocol PFSH Medical History Loss of hearing History of Mohs micrographic surgery for skin cancer Depression Anxiety Alcohol use High cholesterol History of hiatal hernia Non-smoker Shortness of breath on exertion History of pain when walking History of edema History of Holter monitoring Cardiology follow-up encounter Bilateral carpal tunnel syndrome Bronchitis Sinusitis URI (upper respiratory infection) Stress incontinence Wears glasses Cancer Restless legs Barretts esophagus Gastric reflux Rheumatoid arthritis Home Medications ?Medication ?Instructions ?Recorded ?Last Taken ?Type meloxicam 15 mg tablet 15 mg PO DAILY 01/23/22 08/31/24 History pantoprazole 40 mg tablet,delayed 40 mg PO BID 01/23/22 09/01/24 History release rituximab 10 mg/mL 100 mg IV .Q6MO 12/09/22 Unknown History concentrate,intravenous (Rituxan) clobetasol 0.05 % topical ointment 1 applic topical DAILY PRN skin 10/18/23 Unknown History irritation ascorbic acid (vitamin C) 500 mg 1 g PO DAILY 08/28/24 08/31/24 History tablet (C-500) atorvastatin 20 mg tablet 20 mg PO QHS 08/28/24 08/31/24 History azithromycin 250 mg tablet 250 mg PO MOWEFR 08/28/24 08/30/24 History cholecalciferol (vitamin D3) 25 25 mcg PO DAILY 08/28/24 08/31/24 History mcg (1,000 unit) capsule (Vitamin D3) Allergy/AdvReac Type Severity Reaction Status Date / Time No Known Allergies Allergy Verified 09/01/24 10:44 Surgical History Hx of biopsy History of cystoscopy Hx of esophagogastroduodenoscopy Hx of colonoscopy History of bunionectomy Social History household members: spouse housing: house number of children: 3 current occupational status: retired Smoking Status: Never smoker alcohol intake: current alcohol intake frequency: holidays/special occasions only substance use type: does not use seatbelt use: sometimes do you feel safe at home: Yes additional social history: - Jose- Retired Review of Systems (Anesthesia) ROS Narrative System reviewed and no additional complaints, except as documented.
[2024-09-01] MEDS: Ipratropium/Albuterol Sulfate 3 ML AMPUL.NEB INHALATION (11:21)
[2024-09-01] MEDS: Cefazolin 2 GM in Syringe IV (11:40)
--- NOTE | 2024-09-01 12:00 | RAD_ITS ---
STUDY: X-RAY - RIGHT FOOT CLINICAL: Female, 69 years old. BUNIONECTOMY RT FOOT, CORRECTION RT 2ND TOE TECHNIQUE: 6 fluoroscopic intraoperative spot films of the right foot. COMPARISON: None. FINDINGS: The fluoroscopic intraoperative spot films demonstrate ORIF fusion hardware across the first tarsometatarsal joint, anchors in the second metatarsal head/neck, and wires in the fifth metatarsal. Intact visualized metatarsi. RAD/Foot 2 Views IMPRESSION: Fluoroscopic intraoperative spot films provided for right foot surgery. Electronically Signed: Elver Hernandez MD at 13:56 EST ,
[2024-09-01] MEDS: Bupivacaine 0.5% PF 10 ML VIAL (12:05)
--- NOTE | 2024-09-01 14:32 | OP.PCM_ITS ---
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: Operative Report (Standard) Operative Information Date of Procedure: 09/01/24 Pre-Operative Diagnosis: 1) Hallux valgus, right foot 2) long 2nd metatarsal, right foto Post-Operative Diagnosis: same Surgery/Procedure Performed: 1) Right foot bunionectomy via lapiplasty 2) arcenio osteotomy to right 2nd metatarsal voucher clerk: Yes Skilled Nursing Facility Counselor: jodi dubois Tasks completed by assistant front desk manager: Opening, Closing, Dissecting tissue, Trocar and Retracting Type of Anesthesia: General RN Documented Start/Stop Times: Operation Date: 09/01/24 11:45 Case Time Into Pre-Op 09/01/24 10:16 Anesthesia Start 09/01/24 11:35 Into Room 09/01/24 11:35 Procedure Start 09/01/24 11:59 Procedure End 09/01/24 14:20 Anesthesia End 09/01/24 14:23 Out of Room 09/01/24 14:23 Into Recovery 09/01/24 14:26 Procedure Start Time: 11:45 Procedure Stop Time: 02:00 Select all DRAINS/GRAFTS/IMPLANTS that apply: Implanted device Implanted device details: lapiplasty, 2x2.0 snap off screws Special Medications: 15cc 0.5% marcaine plain Estimated Blood Loss: minimal Specimen collected: No Description of surgery: Patient brought back to the operating room placed completely supine position on the operating room table. Patient induced under general anesthesia. All osseous prominences offload prevent any compression neuropraxia. Well-padded right thigh tourniquet applied. Right lower extremity position blankets to relative elevate the right limb relative to the contralateral limb. Right hip bump placed. Right lower extremity scrubbed prepped and draped using typical aseptic fashion. Once cleared by anesthesia right lower extremity was elevated exsanguinated tourniquet was inflated 300 mmHg. Along the medial aspect of the extensor hallucis longus tendon at the level of the first tarsometatarsal joint a linear incision was drawn just medial to the tendon this incision was made with a 15 blade through epidermis dermis into subcutaneous tissue. Any bleeders identified cauterized at this time. Neurovascular structures were protected with blunt retraction. Deep dissection was taken down to level of the deep fascia and periosteum capsulotomy was performed exposing the first tarsometatarsal joint and this joint would be exposed using Lapa plasty's tripoint device to open up the joint. Once we had adequate exposure of the first tarsometatarsal joint and proximal one third of the first metatarsal shaft a pin was placed from medial to lateral in the first metatarsal shaft to allow for derotation of the first ray. At this time a dorsal lateral first MPJ incision was made with a 15 blade through epidermis dermis into subcutaneous tissue blunt dissection taken down to level of the first metatarsal joint capsule laterally a capsulotomy was performed releasing the lateral collateral ligament fibular suspensory ligament and the adductor hallucis tendon performing a lateral release. Adequate release was noted upon rotation of the first metatarsal there is reduction of the tibial and fibular sesamoid underneath the first metatarsal head examined on fluoroscopic imaging. This pin was then removed. In the solid guide was placed over the dorsal aspect of first tarsometatarsal joint. This was stabilized with some pins and position was confirmed to be in correct alignment with regards to the frontal sagittal and transverse planes using fluoroscopic imaging. The device was then reduced using the reduction device that wrapped around the first metatarsal shaft as well as the second metatarsal shaft reducing the IM 1 2 angle using standard Lapa plasty technique. Once this reduction was performed the osteotomy saw cuts were performed at the first tarsometatarsal joint using the Lapa plasty guide after this guide was then slid off the joint was distracted using the distraction device and the fragments were excised from the first tarsometatarsal joint. Fluoroscopic imaging confirmed adequate excision. Upon excision the site was flushed with copious months of normal sterile saline and subchondral drilling was performed with a 2 oh drill bit. The joint was then apposed using the apposition device and the reduction IM [address] remained in place while a olive wire guidepin was placed from dorsal lateral to proximal medial holding the first TMT J in a reduced position. Next using their dorsal steel speed plate the apposition guide and pins were removed and the dorsal spew plate was applied using manufacture guidelines this was a 4 prong plate. Second a second plate was placed medially using the same technique with the first tarsometatarsal joint held in a reduced position with adequate reduction of the first metatarsophalangeal joint and return of the sesamoids underneath the first metatarsal head. At this time tourniquet was let down and is noted be an hour and 27 minutes. Any bleeders were again identified and cauterized. The next procedure was performed using a linear incision over the second metatarsal phalangeal joint. A transverse capsulotomy and extensor tenotomy was performed at the level of metatarsophalangeal joint the medial lateral aspects of the joint were released using blunt dissection. The foot second metatarsal head was identified there is noted to be a small osteochondral lesion to the dorsal lateral aspect of the first second metatarsal head. At this time starting the articular surface traveling along the second metatarsal shaft parallel to the plantar weightbearing surface a sagittal saw was used to make a Arcenio osteotomy cut full-thickness through and through the second metatarsal head was then shortened and stabilized with two 2.0 snap off screws. The overhang dorsally was then excised with bone cutting forceps. And fluoroscopic imaging was used to confirm religion of normal metatarsal parabola. As this was visualized. And confirmed final fluoroscopic imaging were taken and the first tarsometatarsal joint was noted to be reduced less than 10 degrees as well as hallux abductus angle less than 10 degrees. There is normal tibial fibular sesamoid alignment underneath the first metatarsal head. In the second metatarsal head was noted to be shortened restoring the normal metatarsal parabola with intact screws to the second metatarsal head. Incisional site flushed with copious months normal sterile saline. Incisions were then closed with running interlocking 3-0 Monocryl to the deep fascia and joint capsule along the first tarsometatarsal joint and then on these subcutaneous closure was performed with simple interrupted buried 4-0 Monocryl skin closure performed with alternating horizontal mattress and simple interrupted using 4-0 nylon. Lateral release incision was closed using 4-0 nylon the second metatarsal stab incision where the reduction device was placed was closed using 4-0 nylon horizontal mattress. Second digit closure was performed with repair of the extensor tendon using over and over stitch. Subcutaneous closure performed with simple interrupted buried 4-0 Monocryl skin closure performed with horizontal mattress 4-0 nylon. Incisional sites are cleansed and then dressed with Betadine Adaptic 4 x 4's Kerlix and a well-padded AO splint was applied with the foot and ankle held rectus position of the right lower extremity. Patient was transferred to the PACU with vital signs stable and vascular status intact all digits for further monitoring prior to discharge. Patient tolerated procedure and anesthesia well in apparent satisfactory condition. Patient will be discharged maintain nonweightbearing to right lower extremity for 2 weeks and then return to ambulation in a cam walking boot. No complications noted Adequate reduction bunion deformity right foot as well as religion of normal metatarsal parabola after Arcenio osteotomy performed this confirmed with clinical observation as well as fluoroscopic imaging No pathologic specimen taken Surgical Findings: above Complications Complications: No
--- NOTE | 2024-09-01 14:57 | PCM.POST.ANE ---
Anesthesia: Postop Eval I Current Vital Signs Temperature: 97 F Pulse Rate: 78 Blood Pressure: 133/80 Respiratory Rate: 16 Pulse Ox: 94 Oxygen Delivery Method: Room Air Assessment Airway patent: Yes Spontaneous unlabored respirations: Yes Mental status: Awake and Calm nausea: No Vomiting: No Anesthesia Complication: No Fluid Hydration Crystalloid volume administer (ml): 1,200 Total IV fluid infused: 1,200 Progress Note Anesthesia document: Postop Eval 1 completed: Yes
[2024-09-01] MEDS: oxyCODONE 5 MG Tablet PO (15:51)
--- NOTE | 2024-09-01 21:29 | POSTOPAN2_ITS ---
Anesthesia Postop Eval I Sum Postop Eval Completion status Anesthesia document: Postop Eval 1 completed: Yes Anesthesia Postop Eval I Summary Anesthesia Postop Eval I Summary: Anesthesia Postop Eval I: Assessment Summary Airway patent Yes 09/01/24 14:58 COMMUNITY [email or web address] Spontaneous unlabored Yes 09/01/24 14:58 COMMUNITY [email or web address] respirations Mental status Awake,Calm 09/01/24 14:58 COMMUNITY [email or web address] nausea No 09/01/24 14:58 COMMUNITY [email or web address].[email or web address] Vomiting No 09/01/24 14:58 COMMUNITY ASSISTANT.[email or web address] Anesthesia Postop Eval I: Fluid Summary Crystalloid volume administer 1,200 09/01/24 14:58 COMMUNITY [email or web address].[email or web address] (ml) Colloids volume administered ( ml) Blood Product volume administered (ml) Total IV fluid infused 1,200 09/01/24 14:58 COMMUNITY [email or web address].[email or web address] Anesthesia Postop Eval I: Summary Notes Anesthesia Complication No 09/01/24 14:58 COMMUNITY [email or web address].[email or web address] Anesthesia Complication Comment: Post-operative progress note Anesthesia: Postop Eval II Evaluation Mental status: Awake and Calm Pain Level: 1 nausea: No Vomiting: No Complications Anesthesia Complication: No
--- NOTE | 2024-09-01 21:29 | PCM.POSTANE2 ---
Anesthesia Postop Eval I Sum Postop Eval Completion status Anesthesia document: Postop Eval 1 completed: Yes Anesthesia Postop Eval I Summary Anesthesia Postop Eval I Summary: Anesthesia Postop Eval I: Assessment Summary Airway patent Yes 09/01/24 14:58 DIETARY SERVICES DIRECTOR.[email or web address] Spontaneous unlabored Yes 09/01/24 14:58 DIETARY SERVICES DIRECTOR.[email or web address] respirations Mental status Awake,Calm 09/01/24 14:58 DIETARY SERVICES DIRECTOR.[email or web address] nausea No 09/01/24 14:58 DIETARY SERVICES DIRECTOR.[email or web address] Vomiting No 09/01/24 14:58 DIETARY SERVICES DIRECTOR.[email or web address] Anesthesia Postop Eval I: Fluid Summary Crystalloid volume administer 1,200 09/01/24 14:58 DIETARY SERVICES DIRECTOR.[email or web address] (ml) Colloids volume administered ( ml) Blood Product volume administered (ml) Total IV fluid infused 1,200 09/01/24 14:58 DIETARY SERVICES DIRECTOR.[email or web address] Anesthesia Postop Eval I: Summary Notes Anesthesia Complication No 09/01/24 14:58 DIETARY SERVICES DIRECTOR.[email or web address] Anesthesia Complication Comment: Post-operative progress note Anesthesia: Postop Eval II Evaluation Mental status: Awake and Calm Pain Level: 1 nausea: No Vomiting: No Complications Anesthesia Complication: No
== END 2024-09-01 16:30 | disposition home or self-care (01) ==
LOC: SDC 10:08 → AC 10:10
PROVIDERS: PCP Internal Medicine; Referring Provider Podiatrist; Visit Provider Podiatrist
PROC: (CPT 28292; principal; 2024-09-01 11:30)
DX: M20.11 Hallux valgus (acquired), right foot (principal); M05.79 Rheumatoid arthritis with rheumatoid factor of multiple sites without organ or systems involvement; I10 Essential (primary) hypertension; D84.821 Immunodeficiency due to drugs; Z79.899 Other long term (current) drug therapy; E78.2 Mixed hyperlipidemia; J45.991 Cough variant asthma; J98.4 Other disorders of lung; F51.01 Primary insomnia
CPT/HCPCS: 28297; 01480; 73620; 76000; 94640; C1713; J2405